=== PATIENT | female | born 1970 | race Caucasian/White ===

== ENCOUNTER 2016-04-30 07:40 | Emergency (ER) | payer OTHER ==
[~2016-04-30] VITALS: Ht 165.1 cm; Wt 64.4 kg
[~2016-04-30 07:40] MED LIST: LIPITOR20 MG PO; ZESTRIL20 MG PO; ZOCOR20 MG PO
[2016-04-30 07:51] VITALS: BP 123/58
--- NOTE | 2016-04-30 08:00 | NUR ---
Patient transferred to bed 3 via wheelchair by tech. RN evaluating patient at bedside.
--- NOTE | 2016-04-30 08:03 | NUR ---
PT TO [facility] WITH OU CLOSED--C/O ROOM SPINNING, WORSEN IF OU OPEN---DENIES GOVEA, NO N/V AT THIS TIME--WILL CONTINUE TO OBSERVE FOR CHANGES AND MAINTAIN X2 SR UP AND [facility] LOW AN LOCKED POSITION TO PREVENT FALL--- AT BEDSIDE--ENCOURAGED TO CALL FOR HELP IF NEEDING TO GET OUT OF [facility]
--- NOTE | 2016-04-30 08:03 | NUR ---
Dr. Nino evaluating patient at bedside.
[2016-04-30] MEDS ORDERED: ONDANSETRON 4 MG ODT PO ONE (08:10)
[2016-04-30] MEDS ORDERED: MECLIZINE 25 MG TAB PO ONE (08:10)
--- NOTE | 2016-04-30 08:45 | NUR ---
PT WITH OU OPEN, SMILING--HOLDING CONVERSATION WITH AT BEDSIDE. PT DENIES DIZZINESS OR SPINNING SENSATION. ENCOURAGED TO RISE FROM BED SLOWLY ALLOW BODY TO ADAPT BEFORE STARTING TO AMBULATE. DRINK PLENTY OF WATER THROUGHOUT THE DAY.
[2016-04-30 09:09] VITALS: BP 113/72
--- NOTE | 2016-04-30 09:09 | NUR ---
Patient discharged with v/s stable. Written and verbal after care instructions given and explained. Patient alert, oriented and verbalized understanding of instructions. Ambulatory with steady gait. All questions addressed prior to discharge. ID band removed. Patient advised to follow up with PMD. Rx of ZOFRAN/ MECLIZINE given. Patient educated on indication of medication including possible reaction and side effects. Opportunity to ask questions provided and answered.
== END 2016-04-30 09:09 | disposition home or self-care (01) ==
LOC: MED 07:40
DX: H81.13 Benign paroxysmal vertigo, bilateral (principal); N30.90 Cystitis, unspecified without hematuria; I10 Essential (primary) hypertension; E78.5 Hyperlipidemia, unspecified
CPT/HCPCS: 81002; 81025; 99283; J8597; S0119

== ENCOUNTER 2016-12-27 04:36 | Emergency (ER) | payer OTHER ==
[~2016-12-27] VITALS: Ht 165.1 cm; Wt 62.1 kg
[2016-12-27 04:41] VITALS: BP 130/98
[2016-12-27] MEDS: diphenhydrAMINE 50 MG/ML VIAL IM ONE (05:11)
[2016-12-27] MEDS: HYDROmorphone PFS 2 MG/ML SYR IM ONE (05:11)
[2016-12-27] MEDS ORDERED: LACTULOSE 20 GM/30 ML UDC PO ONE (06:20)
[2016-12-27] MEDS: LACTULOSE 20 GM/30 ML UDC PO ONE (06:32)
[2016-12-27] MEDS ORDERED: LACTULOSE 20 GM/30 ML UDC ONE (06:39)
[2016-12-27 06:45] VITALS: BP 127/82
== END 2016-12-27 06:45 | disposition home or self-care (01) ==
LOC: MED 04:36
DX: M62.830 Muscle spasm of back (principal); K59.00 Constipation, unspecified; I10 Essential (primary) hypertension
CPT/HCPCS: 74176; 81001; 96372; 99285; J1170; J1200

== ENCOUNTER 2017-08-28 19:56 | Emergency (ER) | payer OTHER ==
[~2017-08-28] VITALS: Ht 165.1 cm; Wt 63.0 kg
[~2017-08-28 19:56] MED LIST changes: -LIPITOR20 MG PO; +LISI-420 PO; +SIMV20TA1 PO; -ZESTRIL20 MG PO; -ZOCOR20 MG PO
[2017-08-28 20:01] VITALS: BP 147/85
--- NOTE | 2017-08-28 20:03 | NUR ---
TO BED # 9 AMBULATORY, REPORT GIVEN TO REHANA CORTEZ.
--- NOTE | 2017-08-28 20:06 | NUR ---
PATIENT PRESENTS TO ED WITH HEADACHE AND BODYACHES X1 DAY. PT DENIES N/V/D; PATIENT HAS PRODUCTIVE COUGH; SKIN IS PINK/WARM/DRY; AAOX4 WITH EVEN AND STEADY GAIT; LUNGS CLEAR BL; HR EVEN AND REGULAR; PT DENIES ANY FEVER, CP, SOB AT THIS TIME; PATIENT STATES PAIN OF 10/10 AT THIS TIME; VSS; PATIENT POSITIONED FOR COMFORT; HOB ELEVATED; BEDRAILS UP X1; BED DOWN. ER MD MADE AWARE OF PT STATUS.
[2017-08-28] MEDS ORDERED: KETOROLAC 30 MG/ML VIAL IM ONE (20:15)
[2017-08-28 21:05] VITALS: BP 138/84
--- NOTE | 2017-08-28 21:05 | NUR ---
Patient discharged with v/s stable. Written and verbal after care instructions given and explained. Patient alert, oriented and verbalized understanding of instructions. Ambulatory with steady gait. All questions addressed prior to discharge. ID band removed. Patient advised to follow up with PMD. Rx of MOTRIN AND CLARITIN given. Patient educated on indication of medication including possible reaction and side effects. Opportunity to ask questions provided and answered.
== END 2017-08-28 21:05 | disposition home or self-care (01) ==
LOC: MED 19:56
DX: R51 Headache (principal); J02.9 Acute pharyngitis, unspecified; M79.1 Myalgia; R05 Cough; I10 Essential (primary) hypertension; Z79.899 Other long term (current) drug therapy
CPT/HCPCS: 96372; 99283; J1885; Q0163

== ENCOUNTER 2017-09-01 21:23 | Emergency (ER) | payer OTHER ==
[~2017-09-01] VITALS: Ht 165.1 cm; Wt 61.4 kg
[2017-09-01 21:30] VITALS: BP 155/104
--- NOTE | 2017-09-01 21:36 | NUR ---
URINE SAMPLE COLLECTED. LABS ORDERED. PT RETURNED TO LOBBY.
[2017-09-01 21:56] LABS: BASOPHILS # (AUTO) 0.1 K/uL (0.00-0.22); BASOPHILS % (AUTO) 0.9 % (0.0-2.0); EOSINOPHILS # (AUTO) 0.3 K/uL (0-0.4); EOSINOPHILS % (AUTO) 3.6 % (0.0-4.0); HEMATOCRIT 40.3 % (36-48); HEMOGLOBIN 13.4 g/dL (12.0-16.0); LYMPHOCYTES # (AUTO) 2.9 K/uL (2.5-16.5); LYMPHOCYTES % (AUTO) 36.2 % (20.5-51.1); MEAN CORPUSCULAR HEMOGLOBIN 29 pg (27-31); MEAN CORPUSCULAR HGB CONC 33 g/dL (33-37); MEAN CORPUSCULAR VOLUME 85.9 fL (80-94); MONOCYTES # (AUTO) 0.5 K/uL (0.8-1.0); MONOCYTES % (AUTO) 5.9 % (1.7-9.3); NEUTROPHILS # (AUTO) 4.3 K/uL (1.8-7.7); NEUTROPHILS % (AUTO) 53.4 % (42.2-75.2); PLATELET COUNT (AUTO) 276 K/uL (140-450); RED BLOOD CELL COUNT(AUTO) 4.69 MIL/uL (4.20-5.40); RED CELL DISTRIBUTION WIDTH 14.6 % (11.6-13.7)
[2017-09-01 22:03] LABS: APPEARANCE,URINE CLOUDY (CLEAR); BILIRUBIN,URINE NEGATIVE (NEGATIVE); BLOOD, URINE NEGATIVE (NEGATIVE); COLOR,URINE YELLOW (YELLOW); LEUKOCYTE ESTERASE ,URINE NEGATIVE (NEGATIVE); NITRITE, URINE NEGATIVE (NEGATIVE); UGLUCOSE NEGATIVE (NEGATIVE)
[2017-09-01 22:13] LABS: ANION GAP 15.6 (8-16); CREATININE 0.8 mg/dL (0.6-1.3); POTASSIUM 3.6 mmol/L (3.5-5.1)
[2017-09-01 22:13] LABS: RBC,URINE 0-5 (RARE) /HPF (0-5); WBC,URINE 0-5 (RARE) /HPF (0-5)
[2017-09-01 22:20] LABS: ALBUMIN 3.8 g/dL (3.4-5.0); TOTAL BILIRUBIN 0.2 mg/dL (0.0-1.0)
--- NOTE | 2017-09-01 22:46 | NUR ---
2246 PT AMBULATED TO BED 1
--- NOTE | 2017-09-01 22:50 | NUR ---
ASSUMED CARE OF PT AT THIS TIME. C/O COLD AND FLU SYMPTOMS X 1 WEEK W/ ALL OVER BODY ACHES AND ELEVATED BP. AAOX4 WITH EVEN AND STEADY GAIT; LUNGS CLEAR BL; HR EVEN AND REGULAR; PATIENT STATES PAIN OF 9/10 AT THIS TIME; VSS; PATIENT POSITIONED FOR COMFORT; HOB ELEVATED; BEDRAILS UP X2; BED DOWN. ER MD MADE AWARE OF PT STATUS. WILL CONTINUE TO MONITOR.
[2017-09-02 01:20] VITALS: BP 148/94
--- NOTE | 2017-09-02 01:20 | NUR ---
Patient discharged with v/s stable. Written and verbal after care instructions given and explained. Patient alert, oriented and verbalized understanding of instructions. Ambulatory with steady gait. All questions addressed prior to discharge. ID band removed. Patient advised to follow up with PMD. Rx of PROMETHAZINE W/ CODEINE given. Patient educated on indication of medication including possible reaction and side effects. Opportunity to ask questions provided and answered.
== END 2017-09-02 01:20 | disposition home or self-care (01) ==
LOC: MED 21:23
DX: J06.9 Acute upper respiratory infection, unspecified (principal); I10 Essential (primary) hypertension; Z79.899 Other long term (current) drug therapy; F17.210 Nicotine dependence, cigarettes, uncomplicated
CPT/HCPCS: 36415; 71045; 80053; 81001; 81025; 84484; 85025; 93005; 99285

== ENCOUNTER 2018-04-10 22:26 | Emergency (ER) | payer OTHER ==
[~2018-04-10] VITALS: Ht 165.1 cm; Wt 63.5 kg
[2018-04-10 22:32] VITALS: BP 121/72
--- NOTE | 2018-04-10 22:34 | NUR ---
TO LOBBY A/W BED, BRYCE BERNAL, FRANCIE NOTED
--- NOTE | 2018-04-10 22:44 | NUR ---
PT TO ER BED 12
--- NOTE | 2018-04-10 23:09 | NUR ---
PT PRESENTS TO ED FOR EVALUATION OF LOWER BACK PAIN. PT STATED S/P FALL IN 2017 AT WORK. TODAY PAIN AT BACK WHEN WALKING. AAO X4, GCS 15, RESPIRATIONS EVEN AND UNALBORED, BL LUNG CLEAR. AMBULATORY WITH 1 PERSON ASSIST, SKIN WARM/PINK/DRY, +PMSC. ABDOMEN SOFT, NON DISTENDED, ACTIVE BOWEL SOUND X4. VSS, STATED PAIN TO LOWER BACK /10. DR. JOYNER MADE AWARE OF PT STATUS. WILL CONTINUE TO MONITOR
[2018-04-11] MEDS ORDERED: HYDROcodone/APAP 5/325 MG 1 TAB TAB PO ONE (00:05)
[2018-04-11] MEDS ORDERED: KETOROLAC 30 MG/ML VIAL IM ONE (00:05)
[2018-04-11] MEDS ORDERED: DIAZEPAM 5 MG TAB PO ONE (00:05)
--- NOTE | 2018-04-11 00:08 | NUR ---
PT TAKEN TO XRAY
[2018-04-11 01:05] VITALS: BP 118/74
--- NOTE | 2018-04-11 01:05 | NUR ---
Patient discharged with v/s stable. Written and verbal after care instructions given and explained. Patient alert, oriented and verbalized understanding of instructions. Ambulatory with steady gait. All questions addressed prior to discharge. ID band removed. Patient advised to follow up with PMD. Rx of VALIUM AND NAPROSYN given. Patient educated on indication of medication including possible reaction and side effects. Opportunity to ask questions provided and answered.
== END 2018-04-11 01:05 | disposition home or self-care (01) ==
LOC: MED 22:26
DX: M54.5 Low back pain (principal); I10 Essential (primary) hypertension; Z79.899 Other long term (current) drug therapy
CPT/HCPCS: 72100; 81002; 81025; 96372; 99283; J1885

== ENCOUNTER 2019-02-11 18:27 | Inpatient (IN) | payer OTHER ==
[~2019-02-11] VITALS: Ht 162.6 cm; Wt 64.0 kg
[2019-02-11 18:27] VITALS: BP 140/78
--- NOTE | 2019-02-11 18:27 | NUR ---
Patient BIBA ALS, transferred to bed 4. RN evaluating patient at bedside.
--- NOTE | 2019-02-11 18:28 | NUR ---
[place] [employer] at bedside.
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
[2019-02-11] MEDS ORDERED: SIMV40TA1 PO (18:40)
[2019-02-11] MEDS ORDERED: LISI10TA11 PO (18:40)
[2019-02-11] MEDS ORDERED: TRAZ-343 PO (18:40)
--- NOTE | 2019-02-11 18:53 | NUR ---
Security called to bedside. All belongings placed in belongings bag and given to Agapito manager security.
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
[2019-02-11 19:58] LABS: BASOPHILS % (AUTO) 0.5 % (0.0-2.0); EOSINOPHILS # (AUTO) 0.1 K/uL (0-0.4); EOSINOPHILS % (AUTO) 0.8 % (0.0-4.0); HEMATOCRIT 39.4 % (36-48); HEMOGLOBIN 13.2 g/dL (12.0-16.0); LYMPHOCYTES # (AUTO) 1.9 K/uL (2.5-16.5); LYMPHOCYTES % (AUTO) 18.4 % (20.5-51.1); MEAN CORPUSCULAR HEMOGLOBIN 29 pg (27-31); MEAN CORPUSCULAR HGB CONC 34 g/dL (33-37); MEAN CORPUSCULAR VOLUME 86.2 fL (80-94); MONOCYTES # (AUTO) 0.4 K/uL (0.8-1.0); MONOCYTES % (AUTO) 3.4 % (1.7-9.3); NEUTROPHILS % (AUTO) 76.9 % (42.2-75.2); PLATELET COUNT (AUTO) 260 K/uL (140-450); RED BLOOD CELL COUNT(AUTO) 4.58 MIL/uL (4.20-5.40); RED CELL DISTRIBUTION WIDTH 14.7 % (11.6-13.7); WHITE BLOOD COUNT (AUTO) 10.3 K/uL (4.8-10.8)
--- NOTE | 2019-02-11 20:25 | NUR ---
PT AMBULATED TO THE RESTROOM INDEPENDENTLY
--- NOTE | 2019-02-11 20:47 | NUR ---
URINE COLLECTED AND DELIVERED TO LAB.
[2019-02-11 20:48] LABS: ALBUMIN 3.7 g/dL (3.4-5.0); ASPARTATE AMINOTRANSFERASE 29 U/L (15-37); CARBON DIOXIDE 27.7 mmol/L (21-32); CHLORIDE 106 mmol/L (98-107); CREATININE 0.6 mg/dL (0.6-1.3); GFR ARICAN-AMERICAN 137 mL/min (>90); GLUCOSE 103 mg/dL (74-106); POTASSIUM 3.7 mmol/L (3.5-5.1); SODIUM SERUM 144 mmol/L (136-145); TOTAL BILIRUBIN 0.2 mg/dL (0.0-1.0); UREA NITROGEN, BLOOD 13 mg/dL (7-18)
--- NOTE | 2019-02-11 20:49 | NUR ---
PT RESTING IN BED WITH FIANCE AT BEDSIDE. 1 TO 1 SITTER AT BEDSIDE. WILL CONTINUE TO MONITOR.
[2019-02-11 20:51] LABS: SALICYLATE < 2.8 mg/dL (2.8-20.0)
[2019-02-11 20:53] LABS: ACETAMINOPHEN < 0.5 ug/ml (10-30)
--- NOTE | 2019-02-11 21:29 | NUR ---
Pt report given to DANA ROBLES. Transfer of care at this time.
[2019-02-11 21:48] LABS: BARBITURATE, URINE NEG. ng/ml (NEG <=200); BENZODIAZEPINE, URINE POS. ng/mL (NEG <=200); CANNABINOID, URINE NEG. ng/mL (NEG <=50); COCAINE, URINE POS. ng/mL (NEG <=300); OPIATE, URINE NEG. ng/mL (NEG <=2000); PHENCYCLIDINE SCREEN,URINE NEG. ng/mL (NEG <=25)
[2019-02-11 21:55] LABS: APPEARANCE,URINE CLEAR (CLEAR); BILIRUBIN,URINE NEGATIVE (NEGATIVE); BLOOD, URINE NEGATIVE (NEGATIVE); COLOR,URINE YELLOW (YELLOW); LEUKOCYTE ESTERASE ,URINE NEGATIVE (NEGATIVE); NITRITE, URINE NEGATIVE (NEGATIVE); UGLUCOSE NEGATIVE (NEGATIVE)
--- NOTE | 2019-02-11 22:12 | NUR ---
PT AWAKE, LAYING ON BED. AT BEDSIDE. PT IS GUARDED ABOUT ANY SI. DENIES ANY HALLUCINATIONS. PRESENTS WITH A FLAT AFFECT. WILL CONTINUE TO MONITOR 1:1 WITH ED STAFF.
--- NOTE | 2019-02-11 22:35 | NUR ---
PATIENT AMBULATED TO BATHROOM.
--- NOTE | 2019-02-11 22:36 | NUR ---
PATIENT AMBULATED BACK TO BED.
--- NOTE | 2019-02-11 23:00 | NUR ---
SPOKE TO FAMILY GIANCARLO MCGINNIS. CONTACT INFO IS [phone]
--- NOTE | 2019-02-11 23:10 | NUR ---
PT STATED SHE IS HUNGRY, WILL ORDER A SANDWICH, ERMD MADE AWARE.
--- NOTE | 2019-02-12 00:37 | NUR ---
Received intake paperwork from Alexis CORTEZ. The following facilities have been reached for placement. Will keep facility updated with information. CHARMA[facility]/ Tashi "Will keep for review for the morning." [facility]HA[facility]/ Linnea "We are full tonight, but I'll keep the packet." [facility]/ Makenzie "Nothing tonight but will keep for the morning." [facility] Moses/ Sandra "Thanks I will add it to the transfer center log." Keturah/ Armando "We are over capacity, but ok i will keep for wait list." MAGO Issa/ Jordan "Thanks, no beds tonight but will keep the intke information."
--- NOTE | 2019-02-12 02:12 | NUR ---
PT LAYING ON BED. GUARDED ABOUT ANY SUICIDAL IDEATIONS. NO BEHAVIOR ISSUES NOTED. PT VSS. WILL CONTINUE TO MONITOR 1:1 WITH ED STAFF.
--- NOTE | 2019-02-12 04:15 | NUR ---
PT ASKED FOR A SANDWICH. TRANSIT BUS OPERATOR NOTIFIED. ERMD MADE AWARE. PT IS CURRENTLY SITTING UP IN BED. COMFORT MEASURES OFFERED, PT TOLERATED WELL. VSS
--- NOTE | 2019-02-12 06:20 | NUR ---
PT AMBULATED TO RESTROOM
--- NOTE | 2019-02-12 06:39 | NUR ---
PT AWAKE ON BED. WHEN ASKED ABOUT WELL BEING PT STATES, "I'M OKAY." GIVES MINIMAL ANSWERS. PRESENTS GUARDED AND WITHDRAWN. PT VSS. WILL CONTINUE TO MONITOR 1:1 WITH ED STAFF.
--- NOTE | 2019-02-12 07:30 | NUR ---
PT IS AWAKE ALERT, CLAM AND COOPERATIVE, STATED " FEELS THE SAME, STILL HAVE FEELING TO KILL MYSELF, I DID NOT SLEEP WELL LAST NIGHT, I NEED SOMETHING TO SLEEP." REFUSED TO TALK ABOUT MORE IN DETAILS. BREAKFAST OFFERED.
--- NOTE | 2019-02-12 07:39 | NUR ---
[facility] to continue actively working on finding placement for this pt. Will contact with any updates. No openings overnight per noc shift report.
--- NOTE | 2019-02-12 09:18 | NUR ---
Pt calm, GCS 15, had her breakfast 100%, continue to monitor closely
--- NOTE | 2019-02-12 09:30 | NUR ---
[facility] contacted the following facilities regarding placement: Zandra Moses: s/w Katt, no openings at this time, possible openings later today. Will followup, packet on file. [facility] [place]: s/w [place], states no beds at this time but possible dcs later, packet refaxed for waitlist. [facility]: no answer, voicemail box full, packet refaxed for review. [facility]: s/w [facility], states d/cs are being planned now, requested packet be faxed. Refaxed for review, will f/u. [facility]: No answer, packet faxed, will follow up.
--- NOTE | 2019-02-12 09:59 | NUR ---
Dr. Thomas is evaluating the patient at bedside.
--- NOTE | 2019-02-12 10:15 | NUR ---
Pt stable, significant other is at the bedside, GCS 15, VSS. Will continue to monitor closely.
[2019-02-12] MEDS ORDERED: traZODone 50 MG TAB PO SCH ×2 (10:30→21:00)
--- NOTE | 2019-02-12 11:30 | NUR ---
Pt stable, no s/s of any acute distress noted, GCS 15. Will continue to monitor.
--- NOTE | 2019-02-12 11:53 | NUR ---
pt eating her lunch at bedside, family at the bedside.
--- NOTE | 2019-02-12 11:58 | NUR ---
[facility] contacted the following facilities regarding placement: Zandra Moses: s/w [facility], no openings today. Packet on waitlist. will follow up. [facility], states no beds at this time will hold packet for waitlist. request f/u tomorrow. [facility]: s/w [facility], states that they do not have beds, there are pts in their own ER pending placement in their unit as well that have priority. [facility]: s/w Vasu, states no openings today, will hold onto packet for possible openings tomorrow. [facility]: No answer, packet faxed, will follow up. [facility]: s/w Nery states no beds available. Will continue to look for placement. Will contact with any updates.
--- NOTE | 2019-02-12 14:26 | NUR ---
pt stable, vss, gcs 15, will continue to monitor closely.
[2019-02-12] MEDS ORDERED: HYDROcodone/APAP 5/325 MG 1 TAB TAB PO PRN (15:00)
[2019-02-12] MEDS ORDERED: HALOPERIDOL IM 5 MG/ML VIAL IM PRN (15:00)
[2019-02-12] MEDS ORDERED: ZOLPIDEM 5 MG TAB PO PRN (15:00)
[2019-02-12] MEDS ORDERED: LORazepam 2 MG/ML VIAL IVP PRN (15:00)
[2019-02-12] MEDS ORDERED: ONDANSETRON 4 MG/2 ML VIAL IVP PRN (15:00)
[2019-02-12] MEDS ORDERED: ACETAMINOPHEN 325 MG TAB PO PRN (15:00)
[2019-02-12] MEDS ORDERED: MORPHINE SULFATE 4 MG/ML SYR IVP PRN (15:00)
[2019-02-12 16:15] VITALS: BP 134/76
--- NOTE | 2019-02-12 16:15 | NUR ---
RECEIVED REPORT FROM ER NURSE/DOMONIQUE. PT IS AAOX4, WITH NO C/O PAIN AT THIS TIME. VS WITHIN NORMAL LIMITS. RESPIRATIONS EVEN AND UNLABORED ON RA. ABD SOFT, ACTIVE BS. SKIN IS INTACT, WARM TO TOUCH. PT ADMITTED FROM SUICIDAL IDEATIONS, SITTER AT BEDSIDE. REVIEWED POC WITH PT, PT VERBALIZED UNDERSTANDING. WILL CONTINUE TO MONITOR.
--- NOTE | 2019-02-12 16:19 | NUR ---
Patient will be admitted to care of DR. Thomas. Admited to MED/ SURGE. Will go to room 110B Belongings list completed. Report to DANA Wilson
--- NOTE | 2019-02-12 18:00 | NUR ---
PT SITTING UP IN BED HAVING DINNER. PT HAS NO SIGNS OF DISTRESS AT THIS TIME.
--- NOTE | 2019-02-12 19:05 | NUR ---
ENDORSED PT TO CLINICAL CARE COORDINATOR NURSE RENETTA. PT HAS NO SIGNS OF DISTRESS AT THIS TIME.
--- NOTE | 2019-02-12 19:06 | NUR ---
REPORT RECEIVED FROM AM NURSE AT BEDSIDE. PT IN STABLE CONDITION. AAOX4. INTRODUCED SELF TO PT. BOARD UPDATED. NO COMPLAINTS OF PAIN. NO SOB. AFEBRILE. PT IS AMBULATORY. 5150 HOLD 1:1 SITTER. PT CURRENTLY HAS NO IV SITE. AWARE. SKIN WARM, DRY, AND INTACT WITH NO OPEN WOUNDS. BED LOCKED IN LOW POSITION. CALL NAIK WITHIN REACH. SAFETY PRECAUTION IN PLACE. ALL NEEDS MET AT THIS TIME.
--- NOTE | 2019-02-12 20:11 | NUR ---
SIMVASTATIN AND DESYREL GIVEN PO. PT TOLERATED WELL.
[2019-02-12] MEDS ORDERED: SIMVASTATIN 40 MG TAB PO SCH (21:00)
--- NOTE | 2019-02-12 21:45 | NUR ---
PT SLEEPING COMFORTABLY BUT AROUSABLE. NO S/S OF DISTRESS NOTED. WILL CONTINUE TO MONITOR.
--- NOTE | 2019-02-12 23:40 | NUR ---
PT SLEEPING COMFORTABLY BUT AROUSABLE. NO S/S OF DISTRESS NOTED. NO COMPLAINTS OF PAIN. NO SOB. AFEBRILE. WILL CONTINUE TO MONITOR.
[2019-02-13] VITALS: BP 98/54
--- NOTE | 2019-02-13 01:15 | NUR ---
PT SLEEPING COMFORTABLY BUT AROUSABLE. NO S/S OF DISTRESS NOTED. RESPIRATIONS EVEN, UNLABORED, AND WNL. WILL CONTINUE TO MONITOR.
--- NOTE | 2019-02-13 01:40 | NUR ---
REPORT GIVEN TO YADIRA SANTANA LVN. PT IN STABLE CONDITION.
--- NOTE | 2019-02-13 01:41 | NUR ---
RECD. RESTING IN BED, SLEEPING COMFORTABLY BUT AROUSABLE. RESPIRATION EVEN AND UNLABORED. NO IV LINE. NO APPEARANCE OF PAIN OR DISCOMFORT NOTED 0/10. WILL CONTINUE TO MONITOR PATIENT FOR ANY SUICIDAL IDEATION AND ENSURE SAFETY THROUGHOUT THE SHIFT.
--- NOTE | 2019-02-13 02:15 | NUR ---
AWAKE, INQUIRED IF SHE IS SHE HAS THOUGHTS OF HURTING HERSELF, STATED NO. SNACK GIVEN, ATE 100%. WENT TO BR TO VOID. BACK TO BED AFTER VOIDING AND WENT BACK TO SLEEP.
--- NOTE | 2019-02-13 03:30 | NUR ---
STILL SLEEPING COMFORTABLY IN BED.
--- NOTE | 2019-02-13 05:24 | NUR ---
No update on bed placement through out shift, packets are still on file with [facility], [facility], [facility], [facility], [facility]. Will endorse to oncoming AM shift to continue following up with placement.
--- NOTE | 2019-02-13 06:35 | NUR ---
ABLE TO SLEEP WELL. CONDITION REMAIN STABLE. SAFETY MAINTAINED. NEW SITTER MONITORING PATIENT. WILL ENDORSE TO AM SHIFT NURSE FOR CONTINUITY OF CARE.
--- NOTE | 2019-02-13 07:10 | NUR ---
ENDORSED TO DANA NIÑO FOR CONTINUITY OF CARE.
--- NOTE | 2019-02-13 07:11 | NUR ---
Received report from hourly shift manager. [facility] still looking for placement.
--- NOTE | 2019-02-13 07:13 | NUR ---
Received report from pm nurse. Pt asleep in bed, arousable by auditory stimuli. No signs of distress, no c/o discomfort/pain. Sitter at bedside for continuous monitoring.
[2019-02-13 08:00] VITALS: BP 117/60
--- NOTE | 2019-02-13 08:28 | NUR ---
PATIENT HAS BEEN SCREENED AND CATEGORIZED LOW NUTRITION RISK. PATIENT WILL BE SEEN WITHIN 7 DAYS OF ADMISSION. 02/19/[address]
[2019-02-13] MEDS ORDERED: LISINOPRIL 10 MG TAB PO SCH (09:00)
--- NOTE | 2019-02-13 09:10 | NUR ---
Pt requested to have shower. Pt able to amb with steady gait, no signs of distress. Pt currently in shower room, no lock on door, staff by doorway at all times.
--- NOTE | 2019-02-13 09:40 | NUR ---
Pt back in room after shower. No c/o discomfort, no signs of distress. Sitter remains at bedside for continuous monitoring.
--- NOTE | 2019-02-13 11:34 | NUR ---
Packet resent to [facility] for review. Nery confirmed no beds are available
--- NOTE | 2019-02-13 11:36 | NUR ---
No beds at the following:[facility] per gt [facility] per aimee [facility] per nayla
--- NOTE | 2019-02-13 13:00 | NUR ---
Pt sitting up in bed, reading a book. No signs of distress, no c/o discomfort. Sitter at bedside.
[2019-02-13 16:00] VITALS: BP 122/63
--- NOTE | 2019-02-13 16:54 | NUR ---
Pt currently sitting up in bed, no signs of distress, no c/o discomfort. Fiance & sitter at bedside.
--- NOTE | 2019-02-13 18:10 | NUR ---
Dr. Thomas at bedside, & ordered 5150 hold to be discontinued. Spoke to Dr Ruvalcaba on the phone & obtained discharge order to home. Order noted & carried out. Pt & fiance aware, agree with POC.
--- NOTE | 2019-02-13 18:35 | NUR ---
Pt discharged at this time. Written & verbal discharge instructions provided to pt, verbalized understanding & agree to f/u with PCP & psychiatrist within 1 week. Mary agree to assist her to f/u appt. Pt denies and suicidal thoughts at this time. All belongings returned to pt from security. Name band removed. Pt amb off unit with steady gait accompanied by mary.
== END 2019-02-13 18:35 | disposition home or self-care (01) | DRG 754 ==
LOC: MED 18:27 → MTU 02-12 15:03
PROVIDERS: ADMIT Internal Medicine Pulmonary Disease; ATTEND Internal Medicine Pulmonary Disease
DX: F32.9 Major depressive disorder, single episode, unspecified (principal); R45.851 Suicidal ideations; I10 Essential (primary) hypertension; F15.10 Other stimulant abuse, uncomplicated; F14.90 Cocaine use, unspecified, uncomplicated; Z91.5 Personal history of self-harm; Z79.899 Other long term (current) drug therapy
CPT/HCPCS: 36415; 80053; 80305; 81003; 85025; 87081; 93005; 99285; G0480; G0482

== ENCOUNTER 2019-04-04 10:21 | Emergency (ER) | payer OTHER ==
[~2019-04-04] VITALS: Ht 165.1 cm; Wt 60.9 kg
[~2019-04-04 10:21] MED LIST changes: -LISI-420 PO; +LISI10TA11 PO; -SIMV20TA1 PO; +SIMV40TA1 PO; +TRAZ-343 PO
--- NOTE | 2019-04-04 10:26 | NUR ---
PT TO ER BED 2
[2019-04-04 10:27] VITALS: BP 139/82
--- NOTE | 2019-04-04 10:55 | NUR ---
PT C/O PRODUCTIVE COUGH X 2 WKS, SORE THROAT, LOSS OF APPETITE, AND DIARRHEA SINCE YESTERDAY. DENIES NAUSEA, VOMITING, OR FEVER. TOOK MUCINEX W/O RELIEF. PATIENT STATES PAIN OF 8/10 AT THIS TIME; VSS; PATIENT POSITIONED FOR COMFORT; HOB ELEVATED; BEDRAILS UP X1; BED DOWN. ER MD MADE AWARE OF PT STATUS. WHEEZINGS AUSCULTATED ON BILATRAL LUNGS WHILE COUGHING. PT IS ON MONITOR FOR OXYGEN SATS MONITORING.
[2019-04-04] MEDS: ALBUTEROL 0.083% 2.5 MG/3 ML NEBU INH ONE (11:05)
--- NOTE | 2019-04-04 11:05 | NUR ---
RT IS AT BEDSIDE AND IMPLEMENTING BREATHING TREATMENT.
[2019-04-04] MEDS: IPRATROPIUM 0.02% 0.5 MG/2.5 ML NEBU INH ONE (11:06)
[2019-04-04] MEDS: predniSONE 20 MG TAB PO ONE (11:08)
[2019-04-04 12:30] VITALS: BP 131/80
--- NOTE | 2019-04-04 12:31 | NUR ---
Patient discharged with v/s stable. Written and verbal after care instructions given and explained regarding asthma. Patient alert, oriented and verbalized understanding of instructions. Ambulatory with steady gait. All questions addressed prior to discharge. ID band removed. Patient advised to follow up with PMD. Rx of dextromethorphan,prednisone,albuterol,aerochmber mask given. Patient educated on indication of medication including possible reaction and side effects. Opportunity to ask questions provided and answered.
== END 2019-04-04 12:31 | disposition home or self-care (01) ==
LOC: MED 10:21
DX: B34.9 Viral infection, unspecified (principal); J98.01 Acute bronchospasm; Z98.51 Tubal ligation status; Z79.899 Other long term (current) drug therapy
CPT/HCPCS: 71045; 94640; 99283; J7512; J7613; J7644; Q0092

== ENCOUNTER 2019-06-08 18:38 | Emergency (ER) | payer OTHER ==
[~2019-06-08] VITALS: Ht 165.1 cm; Wt 62.1 kg
--- NOTE | 2019-06-08 18:45 | NUR ---
PT AMBULATED TO BED 7, STEADY GAIT.
[2019-06-08 18:50] VITALS: BP 124/47
--- NOTE | 2019-06-08 19:15 | NUR ---
48 Y/O F C/O LOWER BACK PAIN 10 X 2-3 HOURS AGO. PER PT, PT WAS LIFTING SOMETHING HEAVY AND FELT A CRACK ON HER LOWER BACK. PT HAS STEADY GAIT, CAP REFILL <3 SECONDS, ABLE TO MOVE LEGS/FEET WITH NO DIFFICULTY. CMS INTACT. VSS. NO DISTRESS OR OBVIOUS DEFORMITIES NOTED. BED IN LOWEST POSITION, SIDE RAIL UP X1. WILL CONTINUE TO MONITOR. HX - HTN, HIGH CHOLESTEROL NKA
--- NOTE | 2019-06-08 20:18 | NUR ---
DR. POLLACK EVALUATING PT AT BEDSIDE.
[2019-06-08] MEDS ORDERED: DIAZEPAM 5 MG TAB PO ONE (20:20)
[2019-06-08] MEDS ORDERED: KETOROLAC 30 MG/ML VIAL IM ONE (20:20)
--- NOTE | 2019-06-08 20:35 | NUR ---
MEDICATED PT WITH TORADOL IM 30 MG VIA RIGHT DELTOID AND VALIUM 10 MG PO
--- NOTE | 2019-06-08 20:56 | NUR ---
ASSISTED PT TO RESTROOM, ABLE TO AMBULATE SLOWLY AND HAS STEADY GAIT.
--- NOTE | 2019-06-08 21:33 | NUR ---
DR. POLLACK AT BEDSIDE.
[2019-06-08 21:43] VITALS: BP 124/47
--- NOTE | 2019-06-08 21:44 | NUR ---
Patient discharged with v/s stable. Written and verbal after care instructions given and explained. Patient alert, oriented and verbalized understanding of instructions. Ambulatory with steady gait. All questions addressed prior to discharge. ID band removed. Patient advised to follow up with PMD. Rx of VALIUM AND IBUPROFEN given. Patient educated on indication of medication including possible reaction and side effects. Opportunity to ask questions provided and answered.
== END 2019-06-08 21:40 | disposition home or self-care (01) ==
LOC: MED 18:38
DX: M54.5 Low back pain (principal); I10 Essential (primary) hypertension; E78.00 Pure hypercholesterolemia, unspecified; Z79.899 Other long term (current) drug therapy
CPT/HCPCS: 96372; 99283; J1885

== ENCOUNTER 2019-09-16 17:07 | Emergency (ER) | payer OTHER ==
[~2019-09-16] VITALS: Ht 165.1 cm; Wt 59.9 kg
[2019-09-16 17:20] VITALS: BP 144/51
--- NOTE | 2019-09-16 17:36 | NUR ---
mechanical fall couple days at home---c/o pain tenderness, mil swelling ; +2 radial pulse <3
--- NOTE | 2019-09-16 17:44 | NUR ---
cardiovascular technician at bedside.
--- NOTE | 2019-09-16 21:05 | NUR ---
Dr. Sorenson examining patient.
[2019-09-16 21:22] VITALS: BP 144/51
--- NOTE | 2019-09-16 21:24 | NUR ---
PTS RIGHT WRIST WAS PLACED IN A WRIST IMOBOLIZER. PTS PMS WNL.
== END 2019-09-16 21:22 | disposition home or self-care (01) ==
LOC: MED 17:07
DX: S63.501A Unspecified sprain of right wrist, initial encounter (principal); I10 Essential (primary) hypertension; F17.200 Nicotine dependence, unspecified, uncomplicated; E78.5 Hyperlipidemia, unspecified; Z98.890 Other specified postprocedural states; X58.XXXA Exposure to other specified factors, initial encounter; Y93.89 Activity, other specified; Y92.89 Other specified places as the place of occurrence of the external cause; Y99.8 Other external cause status
CPT/HCPCS: 29125; 73110; 99283; Q0092

== ENCOUNTER 2019-12-22 21:00 | Emergency (ER) | payer OTHER ==
[~2019-12-22] VITALS: Ht 165.1 cm; Wt 66.7 kg
[2019-12-22 21:13] VITALS: BP 132/69
--- NOTE | 2019-12-22 21:16 | NUR ---
To ED bed 12
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
--- NOTE | 2019-12-22 23:30 | NUR ---
tdap consent form obtained and signed.
[2019-12-22 23:36] VITALS: BP 132/69
--- NOTE | 2019-12-22 23:36 | NUR ---
Patient discharged with v/s stable. Written and verbal after care instructions given and explained. Patient verbalized understanding. Ambulatory with steady gait. All questions addressed prior to discharge. Advised to follow up with PMD.
== END 2019-12-22 23:36 | disposition home or self-care (01) ==
LOC: MED 21:00
DX: S61.211A Laceration without foreign body of left index finger without damage to nail, initial encounter (principal); F41.9 Anxiety disorder, unspecified; F32.9 Major depressive disorder, single episode, unspecified; I10 Essential (primary) hypertension; Z79.899 Other long term (current) drug therapy; W26.0XXA Contact with knife, initial encounter; Y93.89 Activity, other specified; Y92.321 Football field as the place of occurrence of the external cause; Y99.8 Other external cause status
CPT/HCPCS: 12001; 90471; 90715; 99283

== ENCOUNTER 2020-01-03 01:48 | Emergency (ER) | payer OTHER ==
[~2020-01-03] VITALS: Ht 165.1 cm; Wt 64.9 kg
[2020-01-03 01:51] VITALS: BP 152/79
[2020-01-03] MEDS ORDERED: KETOROLAC 15 MG/ML VIAL IVP ONE (02:30)
[2020-01-03] MEDS ORDERED: CYCLOBENZAPRINE 10 MG TAB PO ONE (02:30)
[2020-01-03] MEDS ORDERED: KETOROLAC 30 MG/ML VIAL IM ONE (02:40)
[2020-01-03 03:10] VITALS: BP 152/79
== END 2020-01-03 03:05 | disposition home or self-care (01) ==
LOC: MED 01:48
DX: M54.5 Low back pain (principal); I10 Essential (primary) hypertension; Z79.899 Other long term (current) drug therapy
CPT/HCPCS: 96372; 99283; J1885

== ENCOUNTER 2020-01-31 13:04 | Inpatient (IN) | payer OTHER ==
[~2020-01-31] VITALS: Ht 165.1 cm; Wt 68.0 kg
[2020-01-31 13:04] VITALS: BP 127/60
--- NOTE | 2020-01-31 13:04 | NUR ---
Melonie dewitt in [facility] - 01/31/20 at 1411 by [facility] NOVEL SWAB COLLECTED AND SENT TO LAB.
--- NOTE | 2020-01-31 13:04 | NUR ---
BIBA TAKEN TO BED 5
--- NOTE | 2020-01-31 13:10 | NUR ---
DR. WOLFE AT BEDSIDE.
--- NOTE | 2020-01-31 13:25 | NUR ---
PT AMBULATED TO BATHROOM, STEADY GAIT.
--- NOTE | 2020-01-31 13:26 | NUR ---
COVID SWAB COLLECTED AND GIVEN TO PHLEB.
--- NOTE | 2020-01-31 13:28 | NUR ---
CALLED POISON CONTROL. SPOKE TO CARTER. RECOMMEDATIONS ARE FOLLOWS: OBSERVATION FOR AT LEAST 12 HOURS SINCE WE DO NOT KNOW IF THE PILLS WERE EXTENDED RELEASE OR IMMEDIATE RELEASE. MONTIOR FOR: N/V, DROWSINESS, SEIZURES, APPLY SEIZURE PRECAUTIONS, TREAT SEIZURES WITH BENZODIAZEPINES. WATCH FOR BRADYCARDIA, HYPOTENSION, QTC PROLONGATION, OBTAIN AN EKG AND REPEAT IN 4 HOURS. CHECK TYLENOL, ASA, BLOOD ALCOHOL AND UDS. SUPPORTIVE CARE: IV FLUIDS OR VASOPRESSORS FOR HYPOTENSION, ATROPINE FOR BRADYCARIA, BENZODIAZEPINES FOR ANY SEIZURES. RECOMMENDATIONS GIVEN TO DR. WOLFE.
--- NOTE | 2020-01-31 13:30 | NUR ---
LAB AT BEDSIDE.
--- NOTE | 2020-01-31 13:36 | NUR ---
PT REQUESTING FOOD, PER DR. WOLFE INFORMED PT OF NPO STATUS DUE TO RISK OF ASPIRATION.
[2020-01-31 13:55] LABS: HEMATOCRIT 37.5 % (36-48); HEMOGLOBIN 12.6 g/dL (12.0-16.0); MEAN CORPUSCULAR HEMOGLOBIN 29 pg (27-31); MEAN CORPUSCULAR HGB CONC 34 g/dL (33-37); MEAN CORPUSCULAR VOLUME 85.3 fL (80-94); PLATELET COUNT (AUTO) 267 K/uL (140-450); RED BLOOD CELL COUNT(AUTO) 4.39 MIL/uL (4.20-5.40); RED CELL DISTRIBUTION WIDTH 14.2 % (11.6-13.7); WHITE BLOOD COUNT (AUTO) 9.6 K/uL (4.8-10.8)
[2020-01-31 13:56] LABS: BASOPHILS # (AUTO) 0.1 K/uL (0.00-0.22); BASOPHILS % (AUTO) 0.7 % (0.0-2.0); EOSINOPHILS # (AUTO) 0.1 K/uL (0-0.4); EOSINOPHILS % (AUTO) 0.9 % (0.0-4.0); LYMPHOCYTES # (AUTO) 1.9 K/uL (2.5-16.5); LYMPHOCYTES % (AUTO) 19.8 % (20.5-51.1); MONOCYTES # (AUTO) 0.5 K/uL (0.8-1.0); MONOCYTES % (AUTO) 5.1 % (1.7-9.3); NEUTROPHILS % (AUTO) 73.5 % (42.2-75.2)
[2020-01-31 14:01] LABS: APPEARANCE,URINE CLEAR (CLEAR); BILIRUBIN,URINE NEGATIVE (NEGATIVE); BLOOD, URINE TRACE-I (NEGATIVE); COLOR,URINE YELLOW (YELLOW); LEUKOCYTE ESTERASE ,URINE NEGATIVE (NEGATIVE); NITRITE, URINE NEGATIVE (NEGATIVE); PH,URINE 6.5 (5.0-9.0); UGLUCOSE NEGATIVE (NEGATIVE)
--- NOTE | 2020-01-31 14:04 | NUR ---
NOVEL SWAB COLLECTED AND SENT TO LAB.
[2020-01-31 14:05] LABS: ALBUMIN 3.6 g/dL (3.4-5.0); ANION GAP 12.9 (8-16); ASPARTATE AMINOTRANSFERASE 31 U/L (15-37); CARBON DIOXIDE 26.5 mmol/L (21-32); CHLORIDE 104 mmol/L (98-107); CREATININE 0.8 mg/dL (0.6-1.3); GFR ARICAN-AMERICAN 98 mL/min (>90); GLUCOSE 150 mg/dL (74-106); POTASSIUM 3.4 mmol/L (3.5-5.1); SODIUM SERUM 140 mmol/L (136-145); TOTAL BILIRUBIN 0.3 mg/dL (0.0-1.0); UREA NITROGEN, BLOOD 10 mg/dL (7-18)
[2020-01-31 14:07] LABS: ACETAMINOPHEN < 0.5 ug/ml (10-30); SALICYLATE < 2.8 mg/dL (2.8-20.0)
[2020-01-31 14:47] LABS: CORRECTED WHITE BLOOD COUNT 9.6 K/uL (4.5-11.0)
[2020-01-31 14:50] LABS: BARBITURATE, URINE NEGATIVE ng/ml (NEG <=200); BENZODIAZEPINE, URINE NEGATIVE ng/mL (NEG <=200); CANNABINOID, URINE NEGATIVE ng/mL (NEG <=50); COCAINE, URINE POSITIVE ng/mL (NEG <=300); OPIATE, URINE NEGATIVE ng/mL (NEG <=2000); PHENCYCLIDINE SCREEN,URINE NEGATIVE ng/mL (NEG <=25)
[2020-01-31 14:55] LABS: RBC,URINE 0-5 /HPF (0-5)
[2020-01-31 14:56] LABS: WBC,URINE 0-5 /HPF (0-5)
--- NOTE | 2020-01-31 15:04 | NUR ---
PTS BOYFRIEND UPDATED ON PTS STATUS.
[2020-01-31] MEDS ORDERED: MAG SULF 2000 MG/WATER PREMIX 50 ML IV ONE (15:55)
--- NOTE | 2020-01-31 16:19 | NUR ---
PER DR. WOLFE OK FOR PT TO BE REMOVED OFF NPO STATUS. REGULAR DIET ORDERED AND PT GIVEN A SANDWICH.
--- NOTE | 2020-01-31 16:21 | NUR ---
PT SITTING UP IN BED EATING LUNCH, TOLERATING WELL.
--- NOTE | 2020-01-31 16:41 | NUR ---
PT SITTING UP IN BED, CALM, RR EVEN AND UNLABORED. VS WNL. BED IN LOWEST POSITION, SIDE RAIL UP X 1.
--- NOTE | 2020-01-31 17:22 | NUR ---
VS WNL, PT SITTING UP IN BED, ALERT AND AWAKE.
--- NOTE | 2020-01-31 18:00 | NUR ---
PT SITTING UPRIGHT IN BED EATING DINNER.
--- NOTE | 2020-01-31 18:27 | NUR ---
Packet received for placement
--- NOTE | 2020-01-31 18:34 | NUR ---
Packet faxed to [facility]
--- NOTE | 2020-01-31 19:09 | NUR ---
REPORT RECEIVED FROM DANA BENOIT FOR CONTINUATION OF CARE.
--- NOTE | 2020-01-31 19:09 | NUR ---
Pt report given to DANA AMBROCIO. Transfer of care at this time.
--- NOTE | 2020-01-31 19:42 | NUR ---
Pt ambulated to restroom with assistance of EMT
--- NOTE | 2020-01-31 20:05 | NUR ---
Melonie dewitt in ED - 01/31/20 at 2214 by CHATO Pt is sitting upright in high kinsey's position, connected to laboratory monitor. Side railx1. SI precautions in place. Bed is locked and in lowest position.
--- NOTE | 2020-01-31 20:05 | NUR ---
Pt is sitting upright in high kinsey's position, connected to hall monitor. Side railx1. SI precautions in place. Bed is locked and in lowest position.
--- NOTE | 2020-01-31 20:33 | NUR ---
PER PT AUTHORIZATION - UPDATED ZAINA MONDRAGON ON PT STATUS AT THIS TIME.
--- NOTE | 2020-01-31 21:28 | NUR ---
Pt is laying down in bed, connected to the cafeteria monitor, pt is not in any acute distress at this time. SI precautions in place. Bed is locked and in lowest position. Side railx1.
--- NOTE | 2020-01-31 21:28 | NUR ---
Note renate in ED - 01/31/20 at 2213 by CHATO Pt is laying down in bed, connected to the monitoring specialist, pt is not in any acute distress at this time. SI precautions in place. Bed is locked and in lowest position. Side railx1.
--- NOTE | 2020-01-31 22:10 | NUR ---
Melonie ahumadaisela in [facility] - 01/31/20 at 2213 by CHATO Pt is laying down on her left side, bed is locked and in lowest position, pt is connected to bus monitor, SI precautions in place, side rails x1. Pt is not in any acute distress at this time.
--- NOTE | 2020-01-31 22:10 | NUR ---
Pt is laying down on her left side, bed is locked and in lowest position, pt is connected to radiation monitor, SI precautions in place, side rails x1. Pt is not in any acute distress at this time.
--- NOTE | 2020-01-31 22:52 | NUR ---
SPOKE W/ ALBA AT POISON CONTROL , FOLLOW UP ON PT STATUS. PROVIDED HER W/ PT UPDATED VS. PER ALBA , SHE RECOMMENDS UPDATED EKG IF PT QTC > 500 , RECOMMENDS ANOTHER GRAM OF MAGNESIUM AND ADMINISTRATION OF K+ TO GET K+ LEVEL OVER 4 AND CA+ REPLACEMENT TO GET CA+ LEVEL ABOVE 9. FRANCIE MADE AWARE.
--- NOTE | 2020-01-31 23:06 | NUR ---
EKG PERFORMED AT BEDSIDE. EKG READS SINUS RHYTHM @ 84
--- NOTE | 2020-01-31 23:15 | NUR ---
Pt requested a sandwich, provided a sandwich, pt sitting with HOB in high fowlers position.
--- NOTE | 2020-02-01 00:29 | NUR ---
Spoke with Cristobal (the pt's fiance), he stated that she has been in this situation before and he wanted to know if she was going to stay here or be transfered to a psych facility. I let him know that the pt has not been medically cleared yet but that her vital signs are stable at this time and she is resting comfortably. I let him know that when I get more information about placement, I will contact him with that information.
--- NOTE | 2020-02-01 00:42 | NUR ---
Spoke with the pt about talking with her fiance, pt stated that she has attempted to commit suicide 2 other times, the first time in 2017 and the second time in March of 2019. The other times have been as an overdose as well. The pt stated that she doesn't know why she feels so depressed at one time during the day and happy at another time during the day. The pt denies a diagnosis of bipolar or any other psychiatric diagnoses aside from severe depression.
--- NOTE | 2020-02-01 00:48 | NUR ---
Pt ambulated to bathroom with steady gait.
--- NOTE | 2020-02-01 00:59 | NUR ---
PT C/O OF PAIN AND REDNESS AT IV SITE. IV removed, catheter intact and site benign. Applied folded 4x4 gauze and tape to stop bleeding. PT made aware if ERMD order new medication we may need to put in another IV.
--- NOTE | 2020-02-01 01:50 | NUR ---
Pt is asleep, visible rise and fall of chest noted, pt connected to shelter monitor, saO2 @ 96% on RA. SI precautions in place. Bed is locked and in lowest position. Side rails x1.
--- NOTE | 2020-02-01 02:45 | NUR ---
Pt is laying down, HOB in low kinsey's, pt has visible rise and fall of chest, pt is connected to quality assurance monitor body. Pt has an saO2 of 95% on RA. Bed is locked and in lowest position. Side railsx1. SI precautions are in place. Pt is not in any acute distress at this time.
--- NOTE | 2020-02-01 03:50 | NUR ---
Pt is asleep, HOB is in low-fowlers, bed is locked and in lowest position. Visible rise and fall of chest noted. Pt is connected to the patient monitor, current saO2 is 95% on room air. Pt is not in any acute distress at this time. SI precautions are in place.
--- NOTE | 2020-02-01 04:55 | NUR ---
Pt sleeping in supine position. Visible rise and fall of chest noted. Pt is connected to the manager monitoring. Pt is saturating at 95% on room air. Bed is locked and in lowest position, side rails x1, and SI precautions are in place.
--- NOTE | 2020-02-01 05:46 | NUR ---
Pt is asleep, visible rise and fall of chest noted, pt is connected to the cardiac cath lab manager, saO2 at 95%, bed is locked and in lowest position, side rails x1, pt is not in any acute distress at this time. SI precautions are in place.
--- NOTE | 2020-02-01 06:41 | NUR ---
Pt is sleeping on her left side, visible rise and fall of chest noted, bed is locked and in lowest position. Side rails x1. SI precautions in place. Pt is connected to the mine boss saO2 at 95%. Pt is not in any acute distress at this time.
--- NOTE | 2020-02-01 07:10 | NUR ---
Report given to DANA Osorio for transfer of care.
--- NOTE | 2020-02-01 07:10 | NUR ---
RECEIVED REPORT FROM DANA AMBROCIO. PT AWAKE, ALERT, PLEASANT AND COOPERATIVE. DENIES SI. " I HAD STOPPED TAKING MY ZOLOFT ". " I HAVE SO MUCH TO LIVE FOR"
--- NOTE | 2020-02-01 08:00 | NUR ---
SITTING UP IN BED EATING BREAKFAST TRAY, TOLERATED WELL
--- NOTE | 2020-02-01 08:20 | NUR ---
Change of shift report given earlier. machinist 2nd shift reported no placeent available. Sent intake information this AM to Zandra Moses/ Patti/ Ket[facility]/ [facility] Will keep facility informed of any updates.
--- NOTE | 2020-02-01 08:30 | NUR ---
SPOKE WITH FLASH AT POISON CONTROL. UPDATE PROVIDED. PT CLEARED,
--- NOTE | 2020-02-01 10:30 | NUR ---
TELE-PSYCH EVALUATION DONE
--- NOTE | 2020-02-01 12:00 | NUR ---
SITTING UP IN BED EATING LUNCH TOLERATED WELL
[2020-02-01] MEDS ORDERED: MORPHINE SULFATE 2 MG/ML SYR IVP PRN (13:45)
[2020-02-01] MEDS ORDERED: HYDROcodone/APAP 5/325 MG 1 TAB TAB PO PRN (13:45)
[2020-02-01] MEDS ORDERED: ONDANSETRON 4 MG/2 ML VIAL IM/IVP PRN (13:45)
[2020-02-01] MEDS ORDERED: DOCUSATE SODIUM 100 MG GELCAP PO PRN (13:45)
[2020-02-01] MEDS ORDERED: ACETAMINOPHEN 325 MG TAB PO PRN (13:45)
--- NOTE | 2020-02-01 14:42 | NUR ---
SITTING UP IN BED, AWAKE, ALERT IN NAD. EATING SNACK
--- NOTE | 2020-02-01 15:52 | NUR ---
REPORT CALLED TO DANA GARCIA
--- NOTE | 2020-02-01 15:53 | NUR ---
Patient will be admitted to care of JOSE. Admited to DR. GRANADOS. Will go to [facility]. Belongings list completed. Report to DANA GARCIA.
[2020-02-01 16:00] VITALS: BP 123/68
--- NOTE | 2020-02-01 16:00 | NUR ---
RECEIVED REPORT FROM ER NURSE CHRISTIANO PATIENT IS A 5150, SUICIDAL INDIATION AND TOXIC ENCEPHALOPATHY, ON REGULEAR DIET, AAOX4, ROOM AIR, WITH 1:1 SITTER, SKIN INTACT.COVID 19 RAPID NEGATIVE AND COVID 19 PCR PENDING, AMBULATORY POTASSIUM CHLORIDE AT 3.4. ORIENTED TO ROOM, SAFETY MEASURES IN PLACE AND CALL LIGHT WITHIN REACH WILL CONTINUE TO MONITOR.
--- NOTE | 2020-02-01 16:25 | NUR ---
MRSA SWAB DONE AND SENT TO LAB.
[2020-02-01] MEDS ORDERED: POTASSIUM CHLORIDE 10 MEQ TABER PO SCH (16:40)
--- NOTE | 2020-02-01 17:30 | NUR ---
PATIENT POTASSIUM LEVEL AT 3.4 MD AWARE GERRI GAVE PTASSIUM CHLORIDE RAL MEDICATION
--- NOTE | 2020-02-01 19:05 | NUR ---
ENDORSED TO NIGHT NURSE FOR CONTINUITY OF CARE. PT IS STABLE
--- NOTE | 2020-02-01 19:05 | NUR ---
RECEIVED BEDSIDE REPORT FROM DAY SHIFT NURSE. PATIENT IS AWAKE AND COOPERATIVE. RESPIRATION EVEN UNLABORED ON ROOM AIR. NO DISTRESS NOTED. SKIN IS WARM AND DRY SITTER AT BEDSIDE. PLAN OF CARE WAS DISCUSSED. ALL SAFETY MEASURES IN PLACE. BED IS AT LOW POSITION. WILL CONTINUE TO MONITOR.
[2020-02-01] MEDS ORDERED: SIMVASTATIN 40 MG TAB PO SCH (21:00)
--- NOTE | 2020-02-01 23:08 | NUR ---
CHECKED PATIENT. PATIENT SLEEPING RESPIRATION EVEN UNLABORED ON ROOM AIR. NO DISTRESS NOTED. WILL CONTINUE TO MONITOR. SITTER AT BEDSIDE
[2020-02-02] VITALS: BP 135/72
--- NOTE | 2020-02-02 00:27 | NUR ---
Call Center notified Lex supercharger mechanic nurse , there are still no vacancy at any of the designated facilities [facility] will continue to find placement and notify ER when placement is found.
--- NOTE | 2020-02-02 02:03 | NUR ---
MADE ROUNDS. PATIENT IS SLEEPING RESPIRATION EVEN UNLABORED ON ROOM AIR. NO DISTRESS NOTED. SITTER AT BEDSIDE
--- NOTE | 2020-02-02 03:56 | NUR ---
CHECKED PATIENT. PATIENT SLEEPING RESPIRATION EVEN UNLABORED ON ROOM AIR. NO DISTRESS NOTED
[2020-02-02 06:23] LABS: BASOPHILS # (AUTO) 0.1 K/uL (0.00-0.22); BASOPHILS % (AUTO) 0.6 % (0.0-2.0); EOSINOPHILS # (AUTO) 0.3 K/uL (0-0.4); EOSINOPHILS % (AUTO) 2.9 % (0.0-4.0); HEMOGLOBIN 12.8 g/dL (12.0-16.0); LYMPHOCYTES # (AUTO) 2.5 K/uL (2.5-16.5); LYMPHOCYTES % (AUTO) 23.1 % (20.5-51.1); MEAN CORPUSCULAR HEMOGLOBIN 29 pg (27-31); MEAN CORPUSCULAR HGB CONC 33 g/dL (33-37); MEAN CORPUSCULAR VOLUME 87.5 fL (80-94); MONOCYTES # (AUTO) 0.6 K/uL (0.8-1.0); MONOCYTES % (AUTO) 5.9 % (1.7-9.3); NEUTROPHILS # (AUTO) 7.2 K/uL (1.8-7.7); NEUTROPHILS % (AUTO) 67.5 % (42.2-75.2); PLATELET COUNT (AUTO) 278 K/uL (140-450); RED BLOOD CELL COUNT(AUTO) 4.45 MIL/uL (4.20-5.40); RED CELL DISTRIBUTION WIDTH 15.2 % (11.6-13.7); WHITE BLOOD COUNT (AUTO) 10.6 K/uL (4.8-10.8)
[2020-02-02 06:51] LABS: ANION GAP 11.4 (8-16); CARBON DIOXIDE 26.2 mmol/L (21-32); CREATININE 0.9 mg/dL (0.6-1.3); POTASSIUM 4.6 mmol/L (3.5-5.1)
[2020-02-02 06:55] LABS: MAGNESIUM 2.1 mg/dL (1.8-2.4); PHOSPHORUS 3.9 mg/dL (2.5-4.9)
--- NOTE | 2020-02-02 07:00 | NUR ---
ABLE TO SLEEP WELL. SAFETY MAINTAINED DURING SHIFT. NEW SITTER MONITORING PATIENT NEAR DOOR. WILL ENDORSE TO AM SHIFT NURSE FOR CONTINUITY OF CARE.
--- NOTE | 2020-02-02 08:00 | NUR ---
RECEIVED REPORT FROM OIL HEATER OPERATOR FOR CONTINUITY OF CARE. PATIENT ALERT AWAKE ORIENTED X4, NOT IN ANY DISTRESS NOTED. ON ONE TO ONE SITTER. PATIENT COOPERATIVE,DENIES SUICIDAL TENDENCY. WILL CONTINUE TO MONITOR.
[2020-02-02] MEDS ORDERED: lisinopriL 10 MG TAB PO SCH (09:00)
--- NOTE | 2020-02-02 09:11 | NUR ---
PATIENT HAS BEEN SCREENED AND CATEGORIZED LOW NUTRITION RISK. PATIENT WILL BE SEEN WITHIN 7 DAYS OF ADMISSION. 02/08/[address]
[2020-02-02 09:30] VITALS: BP 141/76
--- NOTE | 2020-02-02 11:53 | NUR ---
[facility]AR [facility] CALLED THAT PATIENT HAS BED AT [facility] [place] [address] AW[address]. REPORT TO [phone]. WILL NOTIFY LAUNDRY AID.
--- NOTE | 2020-02-02 12:25 | NUR ---
DISCHARGE PLANNING: PATIENT WAS ACCEPTED BY [address], [place] [address]. PATIENT WILL BE IN UNIT [address] ROOM [address]. ACCEPTING PHYSICIAN WILL BE WITH DR. AWAD. REPORT TO [phone]. RANDOLPH CONTACTED [facility] AND SPOKE TO ZULEYMA. RANDOLPH ARRANGED FOR TRANSPORTATION FOR 1400. RN WAS NOTIFIED.
--- NOTE | 2020-02-02 13:43 | NUR ---
PATIENT IS FOR DC TO [facility], REPORT GIVEN TO DANA FRANK. LEFT MESSAGE TO THE [facility]. [facility] WILL WATER AND SEWER SYSTEMS SUPERINTENDENT PATIENT AT 1400.
--- NOTE | 2020-02-02 14:59 | NUR ---
DC TO [facility], ALERT AWAKE ORIENTED. DC INSTRUCTION GIVEN AND VERBALIZED UNDERSTANDING, IN STABLE CONDITION.
== END 2020-02-02 14:55 | DRG 812 ==
LOC: MED 13:04 → MMU 02-01 13:45 → MTU 02-01 15:29
PROVIDERS: ADMIT Hospitalist; ATTEND Hospitalist
DX: T43.212A Poisoning by selective serotonin and norepinephrine reuptake inhibitors, intentional self-harm, initial encounter (principal); G92 Toxic encephalopathy; E87.6 Hypokalemia; Z20.828 Contact with and (suspected) exposure to other viral communicable diseases; I10 Essential (primary) hypertension; F32.9 Major depressive disorder, single episode, unspecified; F41.9 Anxiety disorder, unspecified; E78.5 Hyperlipidemia, unspecified; R73.03 Prediabetes; R45.851 Suicidal ideations; Y92.89 Other specified places as the place of occurrence of the external cause; Z98.51 Tubal ligation status; Z83.3 Family history of diabetes mellitus
CPT/HCPCS: 36415; 80048; 80053; 80305; 81001; 81025; 83735; 84100; 85025; 87081; 93005; 96365; 96366; 99285; G0480; G0482; J3475; U0003

== ENCOUNTER 2020-05-26 16:47 | Emergency (ER) | payer OTHER ==
[~2020-05-26] VITALS: Ht 165.1 cm; Wt 64.9 kg
[~2020-05-26 16:47] MED LIST changes: +LISI-486 PO; -LISI10TA11 PO
[2020-05-26 16:50] VITALS: BP 137/70
--- NOTE | 2020-05-26 16:59 | NUR ---
49yo f c/o worsening left first digit pain x 1 month. 12/03, pressure-like. pt accidentally slammed the door on her left thumb X1 month ago. nail fell off 2 weeks ago. pt noted swelling of first digit last night. Pt took Tylenol this morning which provided no relief. patient states that everytime she snags the residuals of nail, it begins to swell. cms in tact. no active bleeding at this time. pmh: hld, htn, depression meds: Simvastatin, Lisinopril, Zoloft nka
[2020-05-26] MEDS ORDERED: ACET-9882 PO (17:39)
[2020-05-26 18:01] VITALS: BP 137/70
== END 2020-05-26 18:01 | disposition home or self-care (01) ==
LOC: MED 16:47
DX: S61.102A Unspecified open wound of left thumb with damage to nail, initial encounter (principal); Z79.899 Other long term (current) drug therapy; X58.XXXA Exposure to other specified factors, initial encounter; Y93.89 Activity, other specified; Y92.89 Other specified places as the place of occurrence of the external cause; Y99.8 Other external cause status
CPT/HCPCS: 73140; 99283

== ENCOUNTER 2020-08-29 12:32 | Emergency (ER) | payer OTHER ==
[~2020-08-29] VITALS: Ht 165.1 cm; Wt 59.0 kg
[2020-08-29 12:32] VITALS: BP 108/60
[~2020-08-29 12:32] MED LIST changes: +ACET-9882 PO
--- NOTE | 2020-08-29 12:32 | NUR ---
Patient BIBA ALS accompanied by Agnes DOTSON, transferred to bed 5. RN evaluating the patient at bedside.
--- NOTE | 2020-08-29 12:43 | NUR ---
Lab at bedside.
--- NOTE | 2020-08-29 12:45 | NUR ---
EMT at bedside for EKG
--- NOTE | 2020-08-29 12:45 | NUR ---
49 y/o F BIBA from home with c/c suicidal attempt. Patient A&Ox4, ambulatory, presents lethargic states handful of Trazodone approximately 1 hour prior to arrival. Patient states she was trying to harm herself to not become a burden on her family. Trazodone pill bottle 50mg 1/2 - 1 tab by mouth every day as needed for sleep. Prescription bottle filled 02/13/2020 quantity 14 pills; unknown how many pills were in bottle, however, patient states "she took a handful." Patient assisted from [facility] onto hospital bed and placed into a gown. Pt denies any N/V/D, chest pain, SOB. Pupils 2mm PERRLA. lunchroom monitor in place d/t presentation. [address] EMT at bedside for EKG. Bed locked in lowest position, side rails x 2, call light in reach. PMH: HTN, HLD, depression Meds: Simvastatin, lisinopril, Zoloft, trazodone NKA Sx: Denies
--- NOTE | 2020-08-29 12:46 | NUR ---
Spoke with Gail Pharmacist via Poison Control. Expected: drowsiness/lethargy Monitor SpO2, respiratory depression --> intubated Hypobrady = IV fluids / pressors as needed Seizures - Benzo's for any seizure-like activities QT interval - <4.60s. >4.60s --> check K+/Mg/Ca levels. Replace electrolytes to high end of normal range for correction. Prolonged >500 = 2g Mg to protect against torsades. Labs: +Mg order Supportive care until baseline until cleared from toxic. 4hr observation and reassess.
[2020-08-29 12:53] LABS: BASOPHILS % (AUTO) 0.6 % (0.0-2.0); EOSINOPHILS % (AUTO) 0.6 % (0.0-4.0); HEMOGLOBIN 12.4 g/dL (12.0-16.0); LYMPHOCYTES # (AUTO) 1.9 K/uL (2.5-16.5); LYMPHOCYTES % (AUTO) 25.2 % (20.5-51.1); MEAN CORPUSCULAR HEMOGLOBIN 29 pg (27-31); MEAN CORPUSCULAR HGB CONC 34 g/dL (33-37); MONOCYTES # (AUTO) 0.4 K/uL (0.8-1.0); MONOCYTES % (AUTO) 4.8 % (1.7-9.3); NEUTROPHILS # (AUTO) 5.2 K/uL (1.8-7.7); NEUTROPHILS % (AUTO) 68.8 % (42.2-75.2); PLATELET COUNT (AUTO) 276 K/uL (140-450); RED CELL DISTRIBUTION WIDTH 14.9 % (11.6-13.7); WHITE BLOOD COUNT (AUTO) 7.6 K/uL (4.8-10.8)
[2020-08-29 13:10] LABS: ALBUMIN 3.5 g/dL (3.4-5.0); ASPARTATE AMINOTRANSFERASE 23 U/L (15-37); CARBON DIOXIDE 26.7 mmol/L (21-32); CHLORIDE 106 mmol/L (98-107); CREATININE 0.8 mg/dL (0.6-1.3); GFR ARICAN-AMERICAN 98 mL/min (>90); GLUCOSE 111 mg/dL (74-106); MAGNESIUM 1.9 mg/dL (1.8-2.4); POTASSIUM 3.7 mmol/L (3.5-5.1); SODIUM SERUM 142 mmol/L (136-145); TOTAL BILIRUBIN 0.3 mg/dL (0.0-1.0); UREA NITROGEN, BLOOD 13 mg/dL (7-18)
--- NOTE | 2020-08-29 13:12 | NUR ---
Jose adame and ian swabs collected, walked to lab and handed to CPT. Sania
[2020-08-29 13:14] LABS: BARBITURATE, URINE NEGATIVE ng/ml (NEG <=200); BENZODIAZEPINE, URINE NEGATIVE ng/mL (NEG <=200); CANNABINOID, URINE NEGATIVE ng/mL (NEG <=50); COCAINE, URINE POSITIVE ng/mL (NEG <=300); OPIATE, URINE NEGATIVE ng/mL (NEG <=2000); PHENCYCLIDINE SCREEN,URINE NEGATIVE ng/mL (NEG <=25)
[2020-08-29 13:16] LABS: ACETAMINOPHEN < 0.5 ug/ml (10-30); SALICYLATE < 2.8 mg/dL (2.8-20.0)
--- NOTE | 2020-08-29 13:45 | NUR ---
iPhone placed into belongings bag; security contacted and picked up patient belongings.
--- NOTE | 2020-08-29 14:22 | NUR ---
Patient resting with both eyes open in position of comfort; semi-fowlers. hospital monitor remains in place. Respirations even/unlabored; VSS at this time. Bed locked in lowest position, side rails x 2 for patient safety.
--- NOTE | 2020-08-29 14:45 | NUR ---
Patient provided with ham sandwich, apple juice (2), shonda crackers, jello. Patient completing meal at this time. All pt needs met.
--- NOTE | 2020-08-29 15:00 | NUR ---
Patient completed 100% of meal and states "it filled me up." All pt needs met at this time. Bed locked in lowest position, side rails x 2.
--- NOTE | 2020-08-29 15:30 | NUR ---
Patient resting awake, sitting upright in position of comfort. stone layout marker in place. Respirations even/unlabored. Bed locked in lowest position, side rails x 2, call light in reach.
--- NOTE | 2020-08-29 15:47 | NUR ---
Received intake. Information was faxed to the following facilities for placement. [facility]/ [facility]/ [facility]/ [facility]/ [facility]/ [facility] Will keep ER informed of any updates.
--- NOTE | 2020-08-29 16:12 | NUR ---
Telepsychiatry consultation ordered as requested by Dr. Jimenez.
--- NOTE | 2020-08-29 16:20 | NUR ---
Patient resting awake, sitting upright in position of comfort. qual field manager in place. Respirations even/unlabored. Bed locked in lowest position, side rails x 2, call light in reach.
--- NOTE | 2020-08-29 16:42 | NUR ---
Patient on Telepsychiatric video call.
--- NOTE | 2020-08-29 17:03 | NUR ---
Spoke with Dr. De Luna and provided with Aliyah's phone number. advised that hold will be lifted if phone call with Laiyah (mother) is reassuring. States will call back with findings.
--- NOTE | 2020-08-29 17:11 | NUR ---
Spoke with Gail from Poison Control; states will close the case from a toxicology standpoin due to improvement in symptoms and normal labs / EKG results.
--- NOTE | 2020-08-29 17:13 | NUR ---
Dr. De Luna called back stating he spoke with Aliyah (mother) who was unable to provide a good history on patient; states she felt guilty and concern due to being the person giving patient the pills. States does not feel uncomfortable to clear patient from 5150 hold; will try and contact boyfriend to see if he can provide a better history.
--- NOTE | 2020-08-29 17:35 | NUR ---
Dr. Barrera on the phone with Aliyah in triage room.
--- NOTE | 2020-08-29 17:39 | NUR ---
Patient resting awake, sitting upright in position of comfort. ticker maintainer in place. Respirations even/unlabored. Bed locked in lowest position, side rails x 2 for pt safety.
--- NOTE | 2020-08-29 17:45 | NUR ---
Dr. Barrera called and provided an update with conversation with Aliyah (mother); states will continue to find placement at a facility due to patient and mom's conflicting story.
--- NOTE | 2020-08-29 17:50 | NUR ---
Dinner meal tray at bedside; side rails x 1. Patient completing meal at this time.
--- NOTE | 2020-08-29 18:21 | NUR ---
Patient completed 100% of meal at this time. patient monitor remains in place. Bed locked in lowest position, side rails x 2, call light in reach.
--- NOTE | 2020-08-29 18:24 | NUR ---
IV flushed with 5mL 0.9% NaCl; line patent with good blood return. No swelling, coolness, or redness to site.
--- NOTE | 2020-08-29 18:24 | NUR ---
Note renate in EDM - 08/29/20 at 1841 by MIGUEL IV flushed with 5mL 0.9% NaCl; line patent with good blood return. No swelling, coolness, or swelling to site.
--- NOTE | 2020-08-29 18:56 | NUR ---
Received consent from patient to provide boyfriend with update. Cristobal (boyfriend) states to contact patient's cell phone to reach him. #: [phone]
--- NOTE | 2020-08-29 19:06 | NUR ---
Report and transfer of care given to DANA Reina.
--- NOTE | 2020-08-29 19:08 | NUR ---
RECEIVED REPORT FROM TRELL CORTEZ, FOR CONTINUITY OF CARE
--- NOTE | 2020-08-29 19:54 | NUR ---
PER PT AUTHORIZATION, PT AGREED ON GIVING INFORMATION TO GENESIS HADDADEZRA (MOTHER IN LAW)
--- NOTE | 2020-08-29 19:55 | NUR ---
SPOKE TO GENESIS SANTIAGO, PT'S MOTHER IN LAW, FOR UPDATES.
--- NOTE | 2020-08-29 21:39 | NUR ---
Patient appears to be resting comfortably in bed. Vital Signs within normal limits. Respirations even and unlabored.
--- NOTE | 2020-08-29 21:45 | NUR ---
PT REQUESTED FOR SOME SNACKS AND WATER. FOOD AND WATER PROVIDED FOR THE PATIENT; APPEARS COMFORTABLE IN BED
--- NOTE | 2020-08-29 23:00 | NUR ---
PT IS SLEEPING COMFORTABLY IN BED.
--- NOTE | 2020-08-30 02:02 | NUR ---
Patient appears to be resting comfortably in bed. Vital Signs within normal limits. Respirations even and unlabored.
--- NOTE | 2020-08-30 06:00 | NUR ---
PT AMBULATED TO THE RESTROOM
--- NOTE | 2020-08-30 06:30 | NUR ---
Patient appears to be resting comfortably in bed. Vital Signs within normal limits. Respirations even and unlabored.
--- NOTE | 2020-08-30 07:01 | NUR ---
RECEIVED A CALL FROM PT'S ZAINA,GAVE UPDATE REGARDING PT'S SITUATION
--- NOTE | 2020-08-30 07:11 | NUR ---
GAVE REPORT TO DANA CRUZ. TRANSFER OF CARE AT THIS TIME
--- NOTE | 2020-08-30 07:13 | NUR ---
Received report from Latosha. Assumed care at this time.
--- NOTE | 2020-08-30 07:50 | NUR ---
Received report. There are no beds at this time.
--- NOTE | 2020-08-30 08:02 | NUR ---
Provided with breakfast tray, patient on bedside playground monitor, vital signs stable.
--- NOTE | 2020-08-30 11:26 | NUR ---
Patient resting in bed, no complaints at this time. On bedside project director, vital signs stable.
--- NOTE | 2020-08-30 11:30 | NUR ---
Mother in law Viviane called and was given an update on patient, okay with patient to give information over the phone.
--- NOTE | 2020-08-30 12:19 | NUR ---
Patient provided with lunch tray.
--- NOTE | 2020-08-30 15:12 | NUR ---
Patient c/o pain at IV site, not flushing properly, removed IV, ERMD made aware.
--- NOTE | 2020-08-30 15:30 | NUR ---
PT SPEAKING WITH TELE PSYCH AT THIS TIME.
[2020-08-30 16:09] VITALS: BP 110/55
== END 2020-08-30 16:00 | disposition home or self-care (01) ==
LOC: MED 12:32
DX: T43.212A Poisoning by selective serotonin and norepinephrine reuptake inhibitors, intentional self-harm, initial encounter (principal); T40.5X1A Poisoning by cocaine, accidental (unintentional), initial encounter; Y92.89 Other specified places as the place of occurrence of the external cause; Z20.822 Contact with and (suspected) exposure to COVID-19
CPT/HCPCS: 36415; 80053; 80305; 81025; 83735; 85025; 87426; 93005; 99285; G0480; G0482; U0003

== ENCOUNTER 2021-07-11 14:02 | Emergency (ER) | payer OTHER ==
[~2021-07-11] VITALS: Ht 157.5 cm; Wt 61.2 kg
[2021-07-11 14:26] VITALS: BP 171/80
[2021-07-11] MEDS ORDERED: NACL 0.9% 1,000 ML IV ONE (14:45)
[2021-07-11] MEDS ORDERED: ONDANSETRON 4 MG/2 ML VIAL IVP ONE (14:45)
[2021-07-11] MEDS ORDERED: MECLIZINE 25 MG TAB PO ONE (14:45)
[2021-07-11 15:13] LABS: BASOPHILS # (AUTO) 0.1 K/uL (0.00-0.22); BASOPHILS % (AUTO) 0.9 % (0.0-2.0); EOSINOPHILS # (AUTO) 0.1 K/uL (0-0.4); EOSINOPHILS % (AUTO) 1.9 % (0.0-4.0); HEMATOCRIT 38.5 % (36-48); HEMOGLOBIN 12.9 g/dL (12.0-16.0); LYMPHOCYTES # (AUTO) 1.6 K/uL (2.5-16.5); LYMPHOCYTES % (AUTO) 24.8 % (20.5-51.1); MEAN CORPUSCULAR HEMOGLOBIN 29 pg (27-31); MEAN CORPUSCULAR HGB CONC 34 g/dL (33-37); MEAN CORPUSCULAR VOLUME 85.5 fL (80-94); MONOCYTES # (AUTO) 0.3 K/uL (0.8-1.0); MONOCYTES % (AUTO) 4.1 % (1.7-9.3); NEUTROPHILS # (AUTO) 4.3 K/uL (1.8-7.7); NEUTROPHILS % (AUTO) 68.3 % (42.2-75.2); PLATELET COUNT (AUTO) 249 K/uL (140-450); RED BLOOD CELL COUNT(AUTO) 4.51 MIL/uL (4.20-5.40); RED CELL DISTRIBUTION WIDTH 14.8 % (11.6-13.7); WHITE BLOOD COUNT (AUTO) 6.3 K/uL (4.8-10.8)
[2021-07-11 15:54] LABS: ALBUMIN 3.4 g/dL (3.4-5.0); ANION GAP 10.3 (8-16); CARBON DIOXIDE 30.8 mmol/L (21-32); CREATININE 0.8 mg/dL (0.6-1.3); POTASSIUM 4.1 mmol/L (3.5-5.1); TOTAL BILIRUBIN 0.2 mg/dL (0.0-1.0)
[2021-07-11] MEDS ORDERED: diazePAM 5 MG TAB PO ONE (16:50)
--- NOTE | 2021-07-11 16:52 | NUR ---
pt reports no improvement from dizziness. dr dominguez aware
--- NOTE | 2021-07-11 17:32 | NUR ---
PT RESTING IN GURNEY WITH MOTHER AT BEDSIDE. NAD. SAFETY MAINTAINED
[2021-07-11] MEDS ORDERED: DIAZ5TAB6 PO (17:41)
[2021-07-11] MEDS ORDERED: MECL-303 PO (17:41)
[2021-07-11 17:56] VITALS: BP 124/70
--- NOTE | 2021-07-11 17:56 | NUR ---
Patient discharged with v/s stable. Written and verbal after care instructions given and explained. Patient alert, oriented and verbalized understanding of instructions. Ambulatory with steady gait. All questions addressed prior to discharge. ID band removed. Patient advised to follow up with PMD. Rx of VALIUM, ANTIVERT given. Patient educated on indication of medication including possible reaction and side effects. Opportunity to ask questions provided and answered.
== END 2021-07-11 17:56 | disposition home or self-care (01) ==
LOC: MED 14:02
DX: R42 Dizziness and giddiness (principal); R11.0 Nausea; I10 Essential (primary) hypertension; Z79.899 Other long term (current) drug therapy
CPT/HCPCS: 36415; 70450; 80053; 85025; 93005; 96361; 96374; 99285; J2405; J7030; J8597

== ENCOUNTER 2021-11-07 18:06 | Emergency (ER) | payer OTHER ==
[~2021-11-07] VITALS: Ht 165.1 cm; Wt 56.8 kg
[~2021-11-07 18:06] MED LIST changes: +DIAZ5TAB6 PO; +MECL-303 PO
[2021-11-07 18:28] VITALS: BP 178/95
--- NOTE | 2021-11-07 19:43 | NUR ---
PT AMBULATED TO BED #7
[2021-11-07] MEDS ORDERED: KETOROLAC 30 MG/ML VIAL IM ONE (19:45)
[2021-11-07] MEDS ORDERED: HYDROcodone/APAP 7.5/325 MG 1 TAB PO ONE (19:45)
--- NOTE | 2021-11-07 20:17 | NUR ---
PT AMBULATED TO RESTROOM AND PROVIDED URINE
--- NOTE | 2021-11-07 20:24 | NUR ---
51 YO F BIBS W C/O OF LOWER BACK PAIN THAT STARTED WHEN SHE WENT TO BUSINESS INFORMATION CONSULTANT HER MOTHER FROM [place]. PAIN 10/10 CONSTANT. PT STATES SHE HAS CHRONIC BACK PAIN. PMH: HTN, HIGH CHOL, DEPRESSON NKA
[2021-11-07] MEDS ORDERED: IBUP-2213 PO (20:47)
[2021-11-07] MEDS ORDERED: LID5T TP (20:47)
[2021-11-07] MEDS ORDERED: ACET-8386 PO (20:47)
[2021-11-07] MEDS ORDERED: NITR100C7 PO (20:47)
[2021-11-07 21:10] VITALS: BP 178/95
--- NOTE | 2021-11-07 21:11 | NUR ---
Patient discharged with v/s stable. Written and verbal after care instructions given and explained. Patient alert, oriented and verbalized understanding of instructions. Ambulatory with steady gait. All questions addressed prior to discharge. ID band removed. Patient advised to follow up with PMD. Rx of NORCO 5/325, LIDODERM PATCH, MACROBID,IBUPROFEN given. Patient educated on indication of medication including possible reaction and side effects. Opportunity to ask questions provided and answered.
== END 2021-11-07 21:11 | disposition home or self-care (01) ==
LOC: MED 18:06
DX: M54.50 Low back pain, unspecified (principal); N39.0 Urinary tract infection, site not specified; E78.5 Hyperlipidemia, unspecified; I10 Essential (primary) hypertension; F32.A Depression, unspecified
CPT/HCPCS: 81002; 81025; 87086; 96372; 99283; J1885; 87186

== ENCOUNTER 2022-03-20 11:42 | Emergency (ER) | payer OTHER ==
[~2022-03-20] VITALS: Ht 165.1 cm; Wt 56.7 kg
[~2022-03-20 11:42] MED LIST changes: +ACET-8905 PO; +IBUP-2213 PO; +LID5T TP; +NITR100C7 PO
[2022-03-20 11:47] VITALS: BP 125/76
[2022-03-20] MEDS ORDERED: HYDROcodone/APAP 5/325 MG 1 TAB TAB PO ONE (13:35)
[2022-03-20] MEDS ORDERED: KETOROLAC 30 MG/ML VIAL IM ONE (13:35)
--- NOTE | 2022-03-20 14:15 | NUR ---
51YO FEMALE PT C/O INCREASED SHARP 9/10 LOWER BACK PAIN XLASTNIGHT. REPORTS ONSET AFTER "TWISTING" BACK . PAIN AT MOST ON MOVEMENT. PT W/ CHRONIC BACK PAIN AND STATES PENDING CONSULTATION W/ PAIN MANAGEMENT MD. NO VISIBLE INJURY NOTED. BACK NON TENDER TO TOUCH. -NUMBING -LOSS OF SENSATION . PT AAOX4, HOB POSITIONED PER COMFORT. HX: CHRONIC BACK PAIN, HTN, HLD, ANXIETY , DEPRESSION NKA
[2022-03-20 14:20] LABS: APPEARANCE,URINE SL CLOUDY (CLEAR); BILIRUBIN,URINE NEGATIVE (NEGATIVE); BLOOD, URINE NEGATIVE (NEGATIVE); COLOR,URINE YELLOW (YELLOW); LEUKOCYTE ESTERASE ,URINE NEGATIVE (NEGATIVE); NITRITE, URINE POSITIVE (NEGATIVE); UGLUCOSE NEGATIVE (NEGATIVE)
[2022-03-20 14:35] LABS: OTHER CASTS, URINE None Seen /LPF (None Seen); RBC,URINE 0-5 /HPF (0-5)
[2022-03-20] MEDS ORDERED: CEPH-588 PO (14:54)
[2022-03-20] MEDS ORDERED: ACET-8905 PO (14:54)
[2022-03-20] MEDS ORDERED: LID5T TP (14:54)
[2022-03-20] MEDS ORDERED: IBUP-2213 PO (14:54)
[2022-03-20] MEDS ORDERED: NALO4SPR NS (14:57)
[2022-03-20 15:08] VITALS: BP 139/76
--- NOTE | 2022-03-20 15:08 | NUR ---
Patient discharged with v/s stable. Written and verbal after care instructions FOR UTI AND CHRONIC BACK PAIN given and explained. Patient alert, oriented and verbalized understanding of instructions. Ambulatory with steady gait. All questions addressed prior to discharge. ID band removed. Patient advised to follow up with PMD. Rx of KEFLEX, IBUPROFEN, LIDOCAINE PATCH AND NARCAN given. Opportunity to ask questions provided and answered.
--- NOTE | 2022-03-20 15:09 | NUR ---
The patient's care was reviewed and supervised by Magali Nguyễn RN.
== END 2022-03-20 15:08 | disposition home or self-care (01) ==
LOC: MED 11:42
DX: M54.50 Low back pain, unspecified (principal); G89.29 Other chronic pain; N39.0 Urinary tract infection, site not specified; I10 Essential (primary) hypertension; Z79.899 Other long term (current) drug therapy
CPT/HCPCS: 81001; 87086; 96372; 99283; J1885